=== PATIENT | male | born 1980 | race African-American/Black ===

== ENCOUNTER 2025-03-31 20:58 | Observation (INO) | payer MEDICAID, SELFPAY ==
[2025-03-31] VITALS (11 sets, daily range): BP systolic 108–130; BP diastolic 49–88; PULSE 60–89; RESP 14–18; TEMP 36.4–36.6; O2SAT 96–99; BMI 26.7; BMI 26.6
--- NOTE | 2025-03-31 21:09 | EKG12_ITS ---
Test Reason : DYSRHYTHMIA Blood Pressure : */* mmHG Vent. Rate : 71 BPM Atrial Rate : 71 BPM P-R Int : 176 ms QRS Dur : 106 ms QT Int : 400 ms P-R-T Axes : 65 38 50 degrees QTcB Int : 434 ms Normal sinus rhythm with sinus arrhythmia Normal ECG Confirmed by ROSALVA MCCORMICK ([id number]), editorial intern AIDA MARRERO ([id number]) on 04/01/2025 1:04:54 PM Referred By: Confirmed By: ROSALVA MCCORMICK
--- NOTE | 2025-03-31 21:10 | CT_ITS ---
PROCEDURE: STROKE CTA HEAD AND NECK W/CON 03/31/2025 REASON FOR EXAM: NEURO DEFICIT, ACUTE, STROKE SUSPECTED TECHNIQUE: STROKE CTA HEAD AND NECK W/CON Multiplanar Sagittal and Coronal images were obtained. 3D and MIP post processing was performed. CONTRAST: Isovue 370 VOLUME: 100 mL One or more dose reduction techniques were used (e.g., Automated exposure control, adjustment of the mA and/or kV according to patient size, use of iterative reconstruction technique). RADIATION DOSE SUMMARY: DLP: 857.74 mGycm COMPARISON: None. FINDINGS: CTA HEAD: Widely patent intracranial arterial vasculature. No large vessel occlusion, flow-limiting stenosis, saccular aneurysm, or vascular malformation identified. Major dural venous sinuses are patent. CTA NECK: Conventional aortic arch branching. Bilateral cervical carotid and codominant vertebral arteries are patent, normal in course and caliber. No aneurysm or dissection. CT/STROKE CTA Head AND Neck W/Con IMPRESSION: Normal CTA of the head and neck. Reading Location: [id number]
--- NOTE | 2025-03-31 21:10 | CT_ITS ---
PROCEDURE: STROKE CT BRAIN/HEAD WITHOUT CONTRAST 03/31/2025 REASON FOR EXAM: NEURO DEFICIT, ACUTE, STROKE SUSPECTED TECHNIQUE: STROKE CT BRAIN/HEAD WITHOUT CONTRAST. Coronal and Sagittal reconstruction series were provided. One or more dose reduction techniques were used (e.g., Automated exposure control, adjustment of the mA and/or kV according to patient size, use of iterative reconstruction technique. RADIATION DOSE SUMMARY: CTDlvol: 44.99 mGy DLP: 863.6 mGycm COMPARISON: None. FINDINGS: No acute intracranial hemorrhage, extra-axial collection, mass effect or evidence of acute infarct. Ventricles and subarachnoid spaces are normal in size. Orbital contents are unremarkable. Intact skull base and calvarium. Clear paranasal sinuses and mastoid air cells. CT/STROKE Brain/Head without Cont IMPRESSION: No acute intracranial abnormality. Reading Location: [id number]
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
[2025-03-31 21:17] LABS: Hematocrit 35.9 % (40-54); Hemoglobin 12.6 g/dL (13.0-16.5); Immature Granulocytes Count 0.010 X10^3/uL (0.0-0.0); Mean Corp Hgb Conc 35.1 g/dL (32-36); Mean Corpuscular Volume 91.3 fL (80-94); Mean Platelet Vol. 10.8 fl (6.2-12.0); NRBC Flagged by Analyzer 0 % (0-5); Platelet Count 200 K/mm3 (150-450); RBC Distribution Width CV 12.7 % (11.6-14.6); RBC Distribution Width SD 42.2 fl (35.1-43.9); Red Blood Count 3.93 M/mm3 (4.6-6.2); White Blood Count 4.2 K/mm3 (4.4-11.0)
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
--- NOTE | 2025-03-31 21:32 | PCA ---
no old ekg
[2025-03-31 21:38] LABS: Anion Gap 13 (5-15); BUN 15 mg/dL (4-19); BUN/Creat Ratio 13.4 RATIO (10-20); Calcium,Total 8.8 mg/dL (7.6-11.0); Carbon Dioxide 21.2 mmol/L (21.0-32.0); Chloride 106 mmol/L (98-108); Estimated Creatinine Clearance 80.13 ml/min (50-250); Glucose 117 mg/dL (70-99); Potassium 3.6 mmol/L (3.3-5.1); Troponin T High Sensitivity < 6 ng/L (<=22)
[2025-03-31 22:02] LABS: Prothrombin Time (Protime)PT. 12.6 SECONDS (11.7-14.9)
[2025-03-31 22:03] LABS: Partial Thromboplast Time 30.2 Seconds (24.1-36.2)
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
[2025-04-01 00:04] VITALS: BMI 26.6
[2025-04-01 00:16] LABS: Troponin T High Sens 2 HR < 6 ng/L (<=22)
[2025-04-01 01:47] LABS: Troponin T High Sens 4 HR < 6 ng/L (<=22)
[2025-04-01 03:40] VITALS: BP 130/58; PULSE 53; RESP 12; TEMP 36.7; O2SAT 99
--- NOTE | 2025-04-01 03:40 | ECHOD_ITS ---
Reason For Study Reason For Study: r/o CVA Procedure This was a 2D Doppler, Color Flow transthoracic echocardiogram. Exam performed portable in patient room. Left Ventricle Normal LV size. The estimated ejection fraction is 50-55 %. No evidence for diastolic dysfunction. Right Ventricle Normal RV size. Normal systolic function. Atria Normal left atrium. Normal right atrium. Hypermobile atrial septum. Bubble contrast study is positive for PFO. Mitral Valve The mitral valve is structurally normal. No prolapse or stenosis seen. Trivial mitral valve insufficiency. Tricuspid Valve Normal tricuspid valve. Mild (1+) tricuspid valve insufficiency. Pulmonary artery systolic pressure is 23 mmHg. Aortic Valve Trisinus/trileaflet aortic valve. Pulmonic Valve Normal pulmonic valve. Mild (1+) pulmonic valve insufficiency. Great Vessels Normal sized aortic root. Pericardium/Pleural No pericardial effusion. Medication Performed a rapid injection of agitated mix of 9 cc saline and 1cc air to assess for atrial septal defect. MMode/2D Measurements & Calculations LVIDd: 5.4 cm IVSd: 0.74 cm Ao root diam: 2.7 cm LVIDs: 3.9 cm LVPWd: 0.73 cm RVDd: 3.7 cm FS: 27.7 % LAV(MOD-bp): 42.0 ml LVAd ap4: 29.7 cm2 LVAd ap2: 30.0 cm2 LAV(MOD-bp) Indexed: 21.7 ml/m2 LVLd ap4: 8.0 cm LVLd ap2: 8.3 cm LAV(MOD-sp2): 44.8 ml EDV(MOD-sp4): 94.6 ml EDV(MOD-sp2): 93.5 ml LAV(MOD-sp4): 32.7 ml EDV(sp4-el): 93.3 ml EDV(sp2-el): 91.8 ml LVAs ap4: 18.6 cm2 LVAs ap2: 19.2 cm2 LVLs ap4: 6.4 cm LVLs ap2: 7.5 cm ESV(MOD-sp4): 47.2 ml ESV(MOD-sp2): 44.8 ml ESV(sp4-el): 45.8 ml ESV(sp2-el): 41.8 ml EF(MOD-sp4): 50.1 % EF(MOD-sp2): 52.0 % EF(sp4-el): 50.9 % SV(MOD-sp4): 47.4 ml SV(MOD-sp2): 48.7 ml SV(sp4-el): 47.5 ml SI(MOD-sp4): 24.6 ml/m2 SI(MOD-sp2): 25.2 ml/m2 LA A4 area: 14.7 cm2 LA dimension(2D): 3.2 cm RA A4 area: 11.2 cm2 Time Measurements MV dec time: 0.21 sec Doppler Measurements & Calculations MV E max dexter: 81.3 cm/sec Lat Peak E' Dexter: 12.5 cm/sec Med Peak E' Dexter: 9.3 cm/sec MV A max dexter: 53.9 cm/sec E/E' lat: 6.5 E/E' med: 8.7 MV E/A: 1.5 MV dec slope: 387.8 cm/sec2 Ao V2 max: 95.2 cm/sec LV V1 max: 92.9 cm/sec Ao max P.6 mmHg LV V1 max P.5 mmHg Ao V2 mean: 72.6 cm/sec LV V1 mean P.8 mmHg Ao mean P.3 mmHg LV V1 mean: 63.2 cm/sec Ao V2 VTI: 21.4 cm LV V1 VTI: 19.9 cm AV (velocity ratio): 0.93 PA V2 max: 72.6 cm/sec PI end-d dexter: 68.7 cm/sec TR max dexter: 222.9 cm/sec TR max P.9 mmHg ECHO/Echo Complete Interpretation Summary The estimated ejection fraction is 50-55 %. No evidence for diastolic dysfunction. Bubble contrast study is positive for PFO. Mild (1+) tricuspid valve insufficiency. No previous study to compare Ordering Physician: Marcell Garnett Referring Physician: Cherelle Alberts Performed By: Jeannie Lara, LAMINE, RVT
--- NOTE | 2025-04-01 05:55 | CT_ITS ---
PROCEDURE: BRAIN/HEAD W/WO CONTRAST 04/01/2025 REASON FOR EXAM: TIA TECHNIQUE: BRAIN/HEAD W/WO CONTRAST Coronal and Sagittal reconstruction series were provided. CONTRAST: Isovue-300 VOLUME: 50 mL One or more dose reduction techniques were used (e.g., Automated exposure control, adjustment of the mA and/or kV according to patient size, use of iterative reconstruction technique). RADIATION DOSE SUMMARY: CTDlvol: 44.99 mGy DLP: 1715.95 mGycm COMPARISON: CT head without contrast and CTA head and neck, 03/31/2025. FINDINGS: There is no abnormal intracranial contrast enhancement. There is no evidence of intracranial aneurysms, vascular malformations or stenoses. There is no evidence of acute intracranial hemorrhage or infarction. There are no abnormal intracranial masses or mass effects. The ventricular system and basilar cisterns are unremarkable. The skull base and calvarium are normal. The paranasal sinuses and mastoid air cells are unremarkable. The intraorbital contents are normal. The visualized extracranial soft tissues are normal. CT/Brain/Head W/WO Contrast IMPRESSION: Normal CT brain with IV contrast. Reading Location: [id number]
[2025-04-01 07:31] VITALS: O2SAT 95
[2025-04-01 07:40] VITALS: BP 111/75; PULSE 59; RESP 18; TEMP 36.4; O2SAT 97
[2025-04-01 07:41] LABS: Anion Gap 10 (5-15); BUN 13 mg/dL (4-19); BUN/Creat Ratio 12.1 RATIO (10-20); Calcium,Total 8.4 mg/dL (7.6-11.0); Carbon Dioxide 22.4 mmol/L (21.0-32.0); Chloride 109 mmol/L (98-108); Estimated Creatinine Clearance 86.93 ml/min (50-250); Glucose 103 mg/dL (70-99); Potassium 3.4 mmol/L (3.3-5.1)
[2025-04-01 08:30] LABS: Cholesterol 166 mg/dL (<=200); Low Density Lipoprotein Calc. 91 mg/dL; Triglycerides 199 mg/dL; Very Low Density Lipoprotein 40 mg/dL (5-40); cholesterol:hdl ratio screen 4.77
[2025-04-01] MEDS: Nicotine (PBKC) 7 MG Patch TD (10:24)
--- NOTE | 2025-04-01 11:22 | CASEMGMT ---
Social Work- Pt negative for stroke work-up. PHQ9 not needed at this time. SW remains available to follow for any additional needs. MYRANDA Rojas
[2025-04-01 11:40] VITALS: BP 111/72; PULSE 57; RESP 18; TEMP 36.3; O2SAT 98
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
[2025-04-01 14:26] VITALS: BMI 26.6
--- NOTE | 2025-04-01 14:33 | CHAPLAIN ---
Type of Pastoral Visit _x__ Initial Visit ___ Follow-up Visit ___ On-call Visit ___ General Patient Visit ___ Spiritual Assessment ___ Family Conference ___ Bereavement ___ Rapid Response ___ Code Blue ___ Other (describe below) Pastoral Care Referral From _x__ Patient ___ Family ___ Nurse ___ Physician ___ Slide Attendant ___ Senior Planner ___ Other (describe below) Sacrament/Intervention _x__ Active listening ___ Anointing ___ Sikh ___ Bereavement ___ Communion ___ Adriana exploration ___ ___ Life review _x__ Prayer ___ Reconciliation ___ Sacrament of Sick _x__ Supportive presence ___ Wedding ___ Other (describe below) Pastoral Comments patient is on the phone with his mother at first attempt and asks for a return later; on second attempt other family members were in the room; pt does talk about his situation which came as a surprise and of which he relates much of it coming from stress; pt indicates that he has much stress and anxiety on 'things that I cannot control'; talked about letting go of the idea of being in control, accepting things that are as they are; pt states that he 'believes in [place] Colin but does not go to gnosticist'; pt states that he will need to learn to 'let go of things' and he welcomes prayer support today; of pt then speaks up and asks for prayer for her daughter at this moment; prayer and support given
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
--- NOTE | 2025-04-01 16:08 | CASEMGMT ---
Patient has order for discharge. RN CM in to discuss needs at discharge. Patient denies needs or help at discharge. Patient had no further questions or concerns.
--- NOTE | 2025-04-01 16:12 | PHA.DC.MR.R ---
[facility] [place] [facility] has performed discharge medication reconciliation for this patient. The patient's discharge medication list was reviewed for discrepancies and discrepancies were resolved. Medications at Discharge Home Medications melatonin 5 mg tablet 5 mg PO HS PRN sleep #30 tabs 03/27/25 nicotine 7 mg/24 hr daily transdermal patch 1 patch transdermal Q24H #14 ea 03/27/25 omeprazole 40 mg capsule,delayed release 40 mg PO QDAY #14 caps 03/27/25
[2025-04-01 16:15] VITALS: BP 111/72; PULSE 57; RESP 18; TEMP 36.3; O2SAT 98
== END 2025-04-01 17:16 | disposition home or self-care (01) ==
LOC: ED 21:59 → PCU 22:55
PROVIDERS: Admitting Provider Family Medicine; Emergency Provider Student in an Organized Health Care Education/Training Program; PCP Internal Medicine; Visit Provider Internal Medicine
DX: R20.2 Paresthesia of skin (principal); F31.9 Bipolar disorder, unspecified; E78.00 Pure hypercholesterolemia, unspecified; D72.819 Decreased white blood cell count, unspecified; I07.1 Rheumatic tricuspid insufficiency; I10 Essential (primary) hypertension; K21.9 Gastro-esophageal reflux disease without esophagitis; F43.10 Post-traumatic stress disorder, unspecified; H54.7 Unspecified visual loss; Z79.899 Other long term (current) drug therapy; Z87.891 Personal history of nicotine dependence; Z87.828 Personal history of other (healed) physical injury and trauma; Q21.12 Patent foramen ovale; R51.9 Headache, unspecified
CPT/HCPCS: 36415; 70450; 70470; 70496; 70498; 80048; 80061; 82962; 83036; 84484; 85025; 85610; 85730; 93005; 93306; 96372; 99221; 99285; Q9967; A4216; G0378